=== PATIENT | male | born 1930 | race Caucasian/White ===

== ENCOUNTER 2016-08-05 15:28 | Emergency (ER) | payer MEDICARE, BC ==
[2016-08-05] MEDS ORDERED: SODIUM CHLORIDE 0.9% 1000 ML SOL IV ONE (16:34)
[2016-08-05 16:51] LABS: BASOPHILS % (AUTO) 2 % (0-3); EOSINOPHILS % (AUTO) 3 % (0-9); HEMATOCRIT 39 % (39-53); MEAN CORPUSCULAR HGB CONC 36.2 gm/dl (32.0-36.0); MEAN CORPUSCULAR VOLUME 85 fL (80-100); MONOCYTES % (AUTO) 10.6 % (0-12); NEUTROPHILS % (AUTO) 70.2 % (37-80)
[2016-08-05 17:09] LABS: ALBUMIN 2.7 gm/dl (3.4-5.0); CALCIUM 8.6 mg/dl (8.5-10.1); POTASSIUM 4.8 mMol/L (3.5-5.1)
[2016-08-05 17:19] LABS: APPEARANCE,URINE Clear; BILIRUBIN,URINE NEGATIVE (NEGATIVE); COLOR,URINE Yellow; GLUCOSE, URINE (UA) NEGATIVE (NEGATIVE); KETONES,URINE NEGATIVE (NEGATIVE); LEUKOCYTE ESTERASE ,URINE NEGATIVE (NEGATIVE); NITRATE,URINE NEGATIVE (NEGATIVE); OCCULT BLOOD,URINE 1+ (NEG-TRACE); PH,URINE 6.5; UROBILINOGEN,URINE 0.2 (0.2-1.0 EU)
[2016-08-05] MEDS ORDERED: HYDRALAZINE HYDROCHLORIDE 20 MG/ML SOL IV ONE (18:01)
[2016-08-05] MEDS ORDERED: HYDRALAZINE HYDROCHLORIDE 20 MG/ML SOL ONE (18:04)
[2016-08-05] MEDS ORDERED: ONDANSETRON HCL 4 MG/2 ML SOL ONE (18:58)
[2016-08-05] MEDS ORDERED: MORPHINE SULFATE 10 MG/ML SOL IV ONE (19:19)
[2016-08-05] MEDS ORDERED: MORPHINE SULFATE 10 MG/ML SOL ONE (19:20)
[2016-08-05] MEDS ORDERED: ONDANSETRON HCL 4 MG/2 ML SOL IV ONE (19:24)
[2016-08-05 19:41] VITALS: O2SAT 93
[2016-08-05 20:04] VITALS: BP 131/67; PULSE 85; RESP 18; TEMP 98.4
== END 2016-08-05 20:35 | disposition short-term general hospital (02) | DRG 389 ==
LOC: ED 15:28
DX: K56.60 Unspecified intestinal obstruction (principal); I16.9 Hypertensive crisis, unspecified
CPT/HCPCS: 36415; 74176; 80053; 81001; 82150; 85025; 96365; 96374; 96375; 99284; 99285; J0360; J2270; J2405